=== PATIENT | male | born 1985 | race Hispanic/Latino ===

== ENCOUNTER 2016-10-21 19:22 | Emergency (ER) | payer OTHER ==
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
--- NOTE | 2016-10-21 21:14 | Cat Scan Report ---
FINAL REPORT EXAM: CT HEAD/BRAIN WO CON HISTORY: head injury TECHNIQUE: CT imaging acquired through the head without intravenous contrast. Transaxial reformations are provided. PRIORS: None. FINDINGS: The ventricles, cisterns and sulci are normal. No intraparenchymal or extra-axial mass, hemorrhage, or mass effect. Duran and white-matter differentiation is normal. Normal spherical shape of the globes. Paranasal sinuses and mastoid air cells are clear. No skull or facial fracture visualized. IMPRESSION: No acute intracranial abnormality.
--- NOTE | 2016-10-21 21:16 | Cat Scan Report ---
FINAL REPORT EXAM: CT CERVICAL SPINE WO CON HISTORY: head injury TECHNIQUE: CT imaging is acquired through the cervical spine without contrast. Transaxial, coronal and sagittal reformations are provided. PRIORS: None. FINDINGS: The cervical spine is intact. Vertebral body heights are preserved. No acute fracture or listhesis. Atlanto-dens interval and odontoid process are intact. Mild narrowing of the intervertebral disc space at C5-C6. Intervertebral disc spaces are otherwise preserved. No perivertebral soft tissue swelling or hematoma identified. Limited soft tissue exam of the visualized neck is unremarkable. IMPRESSION: No acute cervical spine fracture identified. Correlate with physical exam and follow up as warranted.
[2016-10-21 21:46] VITALS: BP 146/86
== END 2016-10-21 21:49 | disposition home or self-care (01) ==
LOC: ED 19:22
DX: S09.90XA Unspecified injury of head, initial encounter (principal); V89.2XXA Person injured in unspecified motor-vehicle accident, traffic, initial encounter; Y93.89 Activity, other specified; Y99.9 Unspecified external cause status; Y92.410 Unspecified street and highway as the place of occurrence of the external cause
CPT/HCPCS: 70450; 72125